=== PATIENT | female | born 1930 ===

== ENCOUNTER 2017-08-18 08:08 | Outpatient (CLI) | payer OTHER | END 2017-08-18 17:06 | disposition home or self-care (01) | LOC: RX STUDY 08:08 | DX: R10.13 Epigastric pain (principal); R12 Heartburn; K30 Functional dyspepsia; R11.0 Nausea; B96.81 Helicobacter pylori [H. pylori] as the cause of diseases classified elsewhere; K21.0 Gastro-esophageal reflux disease with esophagitis ==

== ENCOUNTER 2020-10-21 10:14 | Outpatient (CLI) | payer OTHER ==
[~2020-10-21 10:14] MED LIST: ALL DAY ALLERGY10 M3 PO; BIOTIN1 MG PO; CENTRUM SILVER1 EAC2 PO; COZAAR100 MG PO; NEXIUM 24HR20 M1 PO; TOPROL XL25 M1 PO
== END 2020-10-21 10:20 | disposition home or self-care (01) ==
LOC: LAB 10:14
PROVIDERS: ATTEND Specialist
DX: D68.8 Other specified coagulation defects (principal); Z11.52 Encounter for screening for COVID-19; Z20.828 Contact with and (suspected) exposure to other viral communicable diseases

== ENCOUNTER 2020-10-24 07:02 | Day surgery (SDC) | payer OTHER | END 2020-10-24 11:45 | disposition home or self-care (01) | LOC: CIR.AMB 07:02 | PROVIDERS: ATTEND Specialist | DX: N85.01 Benign endometrial hyperplasia (principal); Z20.822 Contact with and (suspected) exposure to COVID-19 ==